=== PATIENT | female | born 1955 | race Hispanic/Latino ===

== ENCOUNTER 2021-07-22 23:58 | Inpatient (IN) | payer OTHER, SELFPAY ==
[2021-07-23] MEDS ORDERED: Ondansetron PF 4 MG/2 ML Vial IVP PRN (00:46)
[2021-07-23] MEDS ORDERED: Promethazine HCl 25 MG/ML VIAL IM PRN (00:46)
[2021-07-23] MEDS ORDERED: hydrALAZINE 20 MG/ML VIAL SLOW IVP PRN (00:46)
[2021-07-23] MEDS ORDERED: Morphine 4 MG/ML VIAL SLOW IVP PRN (00:56)
[2021-07-23] MEDS ORDERED: traMADol HCl 50 MG TAB PO PRN (01:04)
[2021-07-23 01:30] VITALS: BMI 20.7
[2021-07-23] MEDS: Sodium Chloride 0.9% 1,000 ML IV SCH ×2 (01:37→20:34)
[2021-07-23 05:47] LABS: #Eosinphils 0.1 thou/uL (0.0-0.7); #Lymphocytes 2.4 thou/uL (1.20-3.40); #Monocytes 0.5 thou/uL (0.11-0.59); #Neutrophils 4.8 thou/uL (1.40-6.50); %Basophils 0.2 % (0.0-1.0); %Eosinophils 0.7 % (0.0-10.0); %Lymphocytes 30.8 % (21.0-51.0); %Monocytes 6.9 % (0.0-10.0); %Neutrophils 61.4 % (42.0-75.0); Mean Corpuscular HGB CONC 33.5 g/dL (32.0-36.0); Mean Corpuscular Hemoglobin 31.6 pg (27.0-31.0); Mean Corpuscular Volume 94.4 fL (78.0-98.0); Mean Platelet Volume 7.5 fL (7.4-10.4); Platelet Count 221 thou/uL (130-400); RBC Distribution Width 11.5 % (11.5-14.5); Red Blood Cell (RBC) Count 4.12 mill/uL (4.20-5.40); White Blood Cell (WBC) Count 7.9 thou/uL (4.8-10.8)
[2021-07-23 06:00] LABS: PTT 30.3 sec (22.9-36.1)
[2021-07-23 06:04] LABS: Anion Gap 11 mmol/L (10-20); BUN (Urea Nitrogen) 17 mg/dL (9.8-20.1); Calc. Creatinine Clearance 78 mL/min (70-130); Calcium 8.8 mg/dL (7.8-10.44); Carbon Dioxide 26 mmol/L (23-31); Chloride 106 mmol/L (98-107); Glucose 94 mg/dL (80-115); Magnesium 2.1 mg/dL (1.6-2.6); Phosphorus 3.5 mg/dL (2.3-4.7); Potassium 3.8 mmol/L (3.5-5.1); Sodium 139 mmol/L (136-145)
[2021-07-23] MEDS: traMADol HCl 50 MG TAB PO SCH ×4 (06:29→23:01)
[2021-07-23] MEDS: Famotidine/PF 20 mg/2ml Vial SLOW IVP SCH ×2 (08:45→20:33)
[2021-07-23] MEDS: Polyethylene Glycol 3350 17 GM Packet PO SCH (08:47)
[2021-07-23] MEDS: Senokot S 8.6-50 MG TAB PO SCH ×2 (08:48→20:34)
[2021-07-23] MEDS: Acetaminophen 325 MG TAB PO PRN ×2 (11:49→20:35)
[2021-07-23] MEDS ORDERED: Fentanyl 250 MCG/5 ML VIAL ONE ×2 (14:21→16:19)
[2021-07-23] MEDS ORDERED: ceFAZolin Sodium (SDC) 2 GM/100 ML BAG ONE (14:24)
[2021-07-23] MEDS ORDERED: Dexamethasone 20 MG/5 ML VIAL ONE (14:33)
[2021-07-23] MEDS ORDERED: Ketorolac Tromethamine 30 MG/ML VIAL ONE (14:33)
[2021-07-23] MEDS ORDERED: PROPOFOL 200 MG/20 ML VIAL ONE (14:33)
[2021-07-23] MEDS ORDERED: Ondansetron PF 4 MG/2 ML Vial ONE (14:33)
[2021-07-23] MEDS ORDERED: ePHEDrine 50 MG/ML VIAL ONE (14:33)
[2021-07-23] MEDS ORDERED: Lidocaine 1% PF 5 ML VIAL ONE (14:33)
[2021-07-23] MEDS ORDERED: EPINEPHrine 1 MG/ML AMP ONE (15:18)
[2021-07-23] MEDS ORDERED: Bupivacaine PF 0.5% 30 ML VIAL ONE (15:18)
[2021-07-23] MEDS: Ibuprofen 200 MG TAB PO PRN (20:34)
[2021-07-24 04:51] LABS: Bacteria/HPF None Seen HPF (None Seen); Bilirubin Negative (Negative); Blood, Urine Negative (Negative); Clarity Clear (Clear); Glucose, Urine (Dipstick) Normal (Negative); Ketone, Urine Negative (Negative); Leukocyte Negative Leu/uL (Negative); Nitrite Negative (Negative); Protein, Urine (Dipstick) Negative (Neg-Trace); RBC/HPF 0-3 HPF (0-3); Specific Gravity, Urine 1.015 (1.002-1.036); Squamous Epithelial None Seen HPF (0-3); Urine Culture Reflex No No; Urobilinogen Normal mg/dL (Less than 2); WBC/HPF 0-3 HPF (0-3)
[2021-07-24] MEDS: traMADol HCl 50 MG TAB PO SCH ×4 (05:10→23:23)
[2021-07-24 07:22] LABS: #Lymphocytes 1.2 thou/uL (1.20-3.40); #Monocytes 0.3 thou/uL (0.11-0.59); #Neutrophils 5.3 thou/uL (1.40-6.50); %Basophils 0.4 % (0.0-1.0); %Eosinophils 0.2 % (0.0-10.0); %Lymphocytes 17.7 % (21.0-51.0); %Monocytes 4.7 % (0.0-10.0); Hemoglobin 12.3 g/dL (12.0-16.0); Mean Corpuscular HGB CONC 32.9 g/dL (32.0-36.0); Mean Corpuscular Hemoglobin 31.4 pg (27.0-31.0); Mean Corpuscular Volume 95.4 fL (78.0-98.0); Mean Platelet Volume 7.5 fL (7.4-10.4); Platelet Count 223 thou/uL (130-400); RBC Distribution Width 11.4 % (11.5-14.5); Red Blood Cell (RBC) Count 3.92 mill/uL (4.20-5.40); White Blood Cell (WBC) Count 6.8 thou/uL (4.8-10.8)
[2021-07-24 07:47] LABS: Anion Gap 12 mmol/L (10-20); BUN (Urea Nitrogen) 12 mg/dL (9.8-20.1); Calc. Creatinine Clearance 85 mL/min (70-130); Carbon Dioxide 23 mmol/L (23-31); Chloride 102 mmol/L (98-107); Glucose 101 mg/dL (80-115); Magnesium 2.1 mg/dL (1.6-2.6); Phosphorus 3.3 mg/dL (2.3-4.7); Potassium 4.3 mmol/L (3.5-5.1); Sodium 133 mmol/L (136-145)
[2021-07-24] MEDS: Enoxaparin Sodium 40 MG/0.4 ML SYRINGE SC SCH (10:06)
[2021-07-24] MEDS: Famotidine/PF 20 mg/2ml Vial SLOW IVP SCH ×2 (10:06→20:56)
[2021-07-24] MEDS: Polyethylene Glycol 3350 17 GM Packet PO SCH (10:06)
[2021-07-24] MEDS: Senokot S 8.6-50 MG TAB PO SCH ×2 (10:06→20:56)
[2021-07-24] MEDS ORDERED: diphenhydrAMINE 25 MG CAP PO PRN (20:59)
[2021-07-25] MEDS: traMADol HCl 50 MG TAB PO SCH ×2 (04:49→12:10)
[2021-07-25] MEDS: Ibuprofen 200 MG TAB PO PRN ×2 (04:50→15:52)
[2021-07-25] MEDS ORDERED: Famotidine 20 MG TAB PO SCH (09:00)
[2021-07-25] MEDS: Senokot S 8.6-50 MG TAB PO SCH (10:12)
[2021-07-25] MEDS: Polyethylene Glycol 3350 17 GM Packet PO SCH (10:12)
[2021-07-25] MEDS: Enoxaparin Sodium 40 MG/0.4 ML SYRINGE SC SCH (10:12)
[2021-07-25 12:06] VITALS: BP 145/76; TEMP 97.6
== END 2021-07-25 16:41 | disposition home or self-care (01) | DRG 489 ==
LOC: SURG B 07-23 00:44
PROVIDERS: ADMIT Surgery; ATTEND Surgery
PROC: 0QBD0ZZ Excision of Right Patella, Open Approach (ICD-10-PCS; principal; 2021-07-23)
PROC: 0LQQ0ZZ Repair Right Knee Tendon, Open Approach (ICD-10-PCS; 2021-07-23)
DX: S82.031A Displaced transverse fracture of right patella, initial encounter for closed fracture (principal); W01.0XXA Fall on same level from slipping, tripping and stumbling without subsequent striking against object, initial encounter; S82.041A Displaced comminuted fracture of right patella, initial encounter for closed fracture
CPT/HCPCS: 36415; 80048; 81001; 83735; 84100; 85025; 85610; 85730; 86850; 86900; 86901; J0171; J0690; J1100; J1650; J1885; J2405; J2704; J3010; J3490; J7050; S0020; S0028